=== PATIENT | female | born 1940 | race Caucasian/White ===

== ENCOUNTER 2024-01-01 10:25 | Inpatient (IN) | payer MEDICARE, MEDICAID ==
[2024-01-01] MEDS ORDERED: Bisacodyl 5 MG TAB PO PRN (15:59)
[2024-01-01] MEDS: Acetaminophen 325 MG TAB PO PRN (17:01)
[2024-01-01] MEDS: Pregabalin 50 MG CAP PO SCH (20:47)
[2024-01-01] MEDS: Atorvastatin Calcium 40 MG TAB PO SCH (20:47)
[2024-01-01] MEDS: Nystatin Powder 15 GM BOT TOP SCH (20:48)
[2024-01-02] MEDS: oxyCODONE 5 MG TAB PO PRN (00:41)
[2024-01-02 04:45] VITALS: BMI 32.9
[2024-01-02] MEDS: Levothyroxine Sodium 100 MCG TAB PO SCH (05:23)
[2024-01-02 06:03] LABS: #Eosinphils 0.5 thou/uL (0.0-0.7); #Lymphocytes 1.1 thou/uL (1.20-3.40); #Monocytes 0.6 thou/uL (0.11-0.59); #Neutrophils 2.9 thou/uL (1.40-6.50); %Basophils 0.9 % (0.0-1.0); %Eosinophils 10.3 % (0.0-10.0); %Lymphocytes 21.5 % (21.0-51.0); %Monocytes 11.1 % (0.0-10.0); %Neutrophils 56.1 % (42.0-75.0); Hematocrit 40.9 % (36.0-47.0); Hemoglobin 13.3 g/dL (12.0-16.0); Mean Corpuscular HGB CONC 32.5 g/dL (32.0-36.0); Mean Corpuscular Volume 95.6 fl (78.0-98.0); Mean Platelet Volume 7.9 fL (7.4-10.4); Platelet Count 262 10x3/uL (130-400); RBC Distribution Width 15.1 % (11.5-14.5); Red Blood Cell (RBC) Count 4.28 mill/uL (4.20-5.40); White Blood Cell (WBC) Count 5.1 10x3/uL (4.8-10.8)
[2024-01-02 06:17] LABS: ALT (SGPT) 18 U/L (8-55); AST (SGOT) 27 U/L (5-34); Albumin 2.7 g/dL (3.4-4.8); Alkaline Phosphatase 39 U/L (40-110); Anion Gap 13 mmol/L (10-20); BUN (Urea Nitrogen) 8 mg/dL (9.8-20.1); Bilirubin, Total 0.5 mg/dL (0.2-1.2); Calc. Creatinine Clearance 75 mL/min (70-130); Carbon Dioxide 24 mmol/L (23-31); Chloride 103 mmol/L (98-107); Estimated GFR 76; Globulin 3.5 g/dL (2.4-3.5); Glucose 108 mg/dL (83-110); Potassium 4.1 mmol/L (3.5-5.1); Protein, Total 6.2 g/dL (5.8-8.1); Sodium 136 mmol/L (136-145)
[2024-01-02] MEDS: Isosorbide Mononitrate 30 MG ER.TAB PO SCH (07:54)
[2024-01-02] MEDS: Pantoprazole DR 40 MG TAB PO SCH (07:54)
[2024-01-02] MEDS: Rivaroxaban 10 MG TAB PO SCH (16:54)
[2024-01-03] MEDS: Ondansetron ODT 4 MG TAB SL PRN (06:27)
[2024-01-03] MEDS: Methocarbamol 500 MG TAB PO PRN (08:57)
[2024-01-03] MEDS: oxyCODONE 5 MG TAB PO SCH (12:31)
[2024-01-03] MEDS: Acetaminophen 325 MG TAB PO SCH (12:32)
[2024-01-04] MEDS: Senokot S 8.6-50 MG TAB PO PRN (17:30)
[2024-01-04] MEDS: Moisturizing Cream (Eucerin) 113 GM JAR TOP SCH (20:35)
[2024-01-06 05:59] LABS: #Basophils 0.1 thou/uL (0.0-0.2); #Eosinphils 0.4 thou/uL (0.0-0.7); #Lymphocytes 0.9 thou/uL (1.20-3.40); #Monocytes 0.7 thou/uL (0.11-0.59); #Neutrophils 3.5 thou/uL (1.40-6.50); %Basophils 1.3 % (0.0-1.0); %Eosinophils 7.6 % (0.0-10.0); %Lymphocytes 15.9 % (21.0-51.0); %Monocytes 12.7 % (0.0-10.0); %Neutrophils 62.5 % (42.0-75.0); Hematocrit 36.3 % (36.0-47.0); Hemoglobin 11.9 g/dL (12.0-16.0); Mean Corpuscular HGB CONC 32.8 g/dL (32.0-36.0); Mean Corpuscular Hemoglobin 31.1 pg (27.0-31.0); Mean Corpuscular Volume 94.8 fl (78.0-98.0); Mean Platelet Volume 7.5 fL (7.4-10.4); Platelet Count 207 10x3/uL (130-400); RBC Distribution Width 14.6 % (11.5-14.5); Red Blood Cell (RBC) Count 3.82 mill/uL (4.20-5.40); White Blood Cell (WBC) Count 5.6 10x3/uL (4.8-10.8)
[2024-01-06 06:13] LABS: ALT (SGPT) 20 U/L (8-55); AST (SGOT) 28 U/L (5-34); Albumin 2.9 g/dL (3.4-4.8); Alkaline Phosphatase 39 U/L (40-110); Anion Gap 14 mmol/L (10-20); BUN (Urea Nitrogen) 10 mg/dL (9.8-20.1); Bilirubin, Total 0.6 mg/dL (0.2-1.2); Calc. Creatinine Clearance 77 mL/min (70-130); Calcium 8.9 mg/dL (7.8-10.44); Carbon Dioxide 24 mmol/L (23-31); Chloride 102 mmol/L (98-107); Estimated GFR 78; Globulin 3.3 g/dL (2.4-3.5); Glucose 105 mg/dL (83-110); Protein, Total 6.2 g/dL (5.8-8.1); Sodium 136 mmol/L (136-145)
[2024-01-06] MEDS: Pregabalin 75 MG CAP PO SCH (20:22)
[2024-01-10] MEDS: Melatonin 3 MG TAB PO SCH (21:01)
[2024-01-13 06:11] LABS: #Basophils 0.1 thou/uL (0.0-0.2); #Eosinphils 0.5 thou/uL (0.0-0.7); #Lymphocytes 1.5 thou/uL (1.20-3.40); #Monocytes 0.6 thou/uL (0.11-0.59); #Neutrophils 2.3 thou/uL (1.40-6.50); %Basophils 1.2 % (0.0-1.0); %Eosinophils 9.3 % (0.0-10.0); %Lymphocytes 30.1 % (21.0-51.0); %Neutrophils 47.4 % (42.0-75.0); Hematocrit 42.7 % (36.0-47.0); Hemoglobin 13.5 g/dL (12.0-16.0); Mean Corpuscular HGB CONC 31.6 g/dL (32.0-36.0); Mean Corpuscular Hemoglobin 30.4 pg (27.0-31.0); Mean Corpuscular Volume 96.4 fl (78.0-98.0); Mean Platelet Volume 7.4 fL (7.4-10.4); Platelet Count 250 10x3/uL (130-400); RBC Distribution Width 15.5 % (11.5-14.5); Red Blood Cell (RBC) Count 4.43 mill/uL (4.20-5.40); White Blood Cell (WBC) Count 4.9 10x3/uL (4.8-10.8)
[2024-01-13 06:21] LABS: Anion Gap 16 mmol/L (10-20); BUN (Urea Nitrogen) 10 mg/dL (9.8-20.1); Calc. Creatinine Clearance 72 mL/min (70-130); Calcium 9.6 mg/dL (7.8-10.44); Carbon Dioxide 23 mmol/L (23-31); Chloride 105 mmol/L (98-107); Estimated GFR 74; Glucose 114 mg/dL (83-110); Potassium 4.9 mmol/L (3.5-5.1); Sodium 139 mmol/L (136-145)
[2024-01-14 06:30] VITALS: BMI 32.1
[2024-01-14] MEDS: Polyethylene Glycol 3350 17 GM Packet PO SCH (15:01)
[2024-01-15] MEDS ORDERED: Polyethylene Glycol 3350 17 GM Packet PO PRN (07:44)
[2024-01-15] MEDS ORDERED: Polyethylene Glycol 3350 17 GM Packet PO SCH (09:00)
[2024-01-16] MEDS: guaiFENesin ER 600 MG TAB PO SCH (09:16)
[2024-01-16 10:13] LABS: Anion Gap 14 mmol/L (10-20); BUN (Urea Nitrogen) 9 mg/dL (9.8-20.1); Calc. Creatinine Clearance 74 mL/min (70-130); Calcium 8.9 mg/dL (7.8-10.44); Carbon Dioxide 23 mmol/L (23-31); Chloride 102 mmol/L (98-107); Estimated GFR 77; Glucose 105 mg/dL (83-110); Sodium 135 mmol/L (136-145)
[2024-01-16 10:16] LABS: #Basophils 0.1 thou/uL (0.0-0.2); #Eosinphils 0.4 thou/uL (0.0-0.7); #Lymphocytes 1.1 thou/uL (1.20-3.40); #Monocytes 0.6 thou/uL (0.11-0.59); #Neutrophils 3.2 thou/uL (1.40-6.50); %Basophils 1.2 % (0.0-1.0); %Eosinophils 7.1 % (0.0-10.0); %Lymphocytes 20.2 % (21.0-51.0); %Monocytes 11.8 % (0.0-10.0); %Neutrophils 59.7 % (42.0-75.0); Hematocrit 39.4 % (36.0-47.0); Hemoglobin 12.3 g/dL (12.0-16.0); Mean Corpuscular HGB CONC 31.2 g/dL (32.0-36.0); Mean Corpuscular Hemoglobin 30.1 pg (27.0-31.0); Mean Corpuscular Volume 96.7 fl (78.0-98.0); Mean Platelet Volume 8.4 fL (7.4-10.4); Platelet Count 256 10x3/uL (130-400); RBC Distribution Width 14.8 % (11.5-14.5); Red Blood Cell (RBC) Count 4.08 mill/uL (4.20-5.40); White Blood Cell (WBC) Count 5.3 10x3/uL (4.8-10.8)
[2024-01-16 20:34] VITALS: TEMP 98.1
[2024-01-17 10:38] VITALS: BP 98/53
== END 2024-01-17 12:45 | disposition home health service (06) | DRG 948 ==
LOC: NAV ACUTE 15:00
PROVIDERS: ADMIT Family Medicine; ATTEND Family Medicine
DX: R53.81 Other malaise (principal); L97.919 Non-pressure chronic ulcer of unspecified part of right lower leg with unspecified severity; I50.32 Chronic diastolic (congestive) heart failure; L03.115 Cellulitis of right lower limb; L03.116 Cellulitis of left lower limb; L97.929 Non-pressure chronic ulcer of unspecified part of left lower leg with unspecified severity; I25.10 Atherosclerotic heart disease of native coronary artery without angina pectoris; E03.9 Hypothyroidism, unspecified; E78.00 Pure hypercholesterolemia, unspecified; M06.9 Rheumatoid arthritis, unspecified; S31.000A Unspecified open wound of lower back and pelvis without penetration into retroperitoneum, initial encounter; I11.0 Hypertensive heart disease with heart failure; Z98.890 Other specified postprocedural states; Z90.89 Acquired absence of other organs; Z90.49 Acquired absence of other specified parts of digestive tract; Z95.818 Presence of other cardiac implants and grafts; Z90.710 Acquired absence of both cervix and uterus
CPT/HCPCS: 36415; 71045; 80048; 80053; 85025; 97602; Q0162

== ENCOUNTER 2024-11-26 08:43 | Inpatient (IN) | payer MEDICARE, MEDICAID ==
[2024-11-26] MEDS ORDERED: Acetaminophen 325 MG TAB PO PRN ×2 (09:02→13:32)
[2024-11-26] MEDS ORDERED: Mag-Al Plus 1200/1200/120 MG (30 mL) UDCUP PO PRN (09:11)
[2024-11-26] MEDS: oxyCODONE 5 MG TAB PO PRN (17:21)
[2024-11-26 18:33] LABS: Glucose, Urine (Dipstick) Negative (Negative); Leukocyte Negative (Negative); Protein, Urine (Dipstick) 30 mg/dL (Neg-Trace); Specific Gravity, Urine 1.015 (1.005-1.030)
[2024-11-26] MEDS: oxyCODONE 5 MG TAB PO SCH (18:36)
[2024-11-26] MEDS: Acetaminophen 500 MG TAB PO SCH (18:38)
[2024-11-26 18:43] LABS: Bacteria/HPF 1+ HPF (None Seen); CAUTI Indications for Culture Alt mental st,lethar; Oval Fat Bodies/HPF 1+ HPF (None Seen); RBC/HPF 0-3 HPF (0-3); WBC/HPF 0-3 HPF (0-3)
[2024-11-26 18:44] LABS: Urine Culture Reflex No No
[2024-11-26] MEDS: Melatonin 3 MG TAB PO SCH (20:49)
[2024-11-26] MEDS: Gabapentin 100 MG CAP PO SCH (20:50)
[2024-11-26] MEDS ORDERED: Gabapentin 100 MG CAP PO SCH (21:00)
[2024-11-27 05:53] LABS: #Basophils 0.1 thou/uL (0.0-0.2); #Eosinophils 0.3 thou/uL (0.0-0.7); #Lymphocytes 1.1 thou/uL (1.20-3.40); #Monocytes 0.8 thou/uL (0.11-0.59); #Neutrophils 8.6 thou/uL (1.40-6.50); %Basophils 0.6 % (0.0-1.0); %Eosinophils 2.7 % (0.0-10.0); %Lymphocytes 9.8 % (21.0-51.0); %Monocytes 7.0 % (0.0-10.0); %Neutrophils 79.9 % (42.0-75.0); Hematocrit 32.3 % (36.0-47.0); Hemoglobin 10.7 g/dL (12.0-16.0); Mean Corpuscular Hemoglobin 29.6 pg (27.0-31.0); Mean Corpuscular Volume 89.4 fl (78.0-98.0); Platelet Count 430 10x3/uL (130-400); Red Blood Cell (RBC) Count 3.61 mill/uL (4.20-5.40); White Blood Cell (WBC) Count 10.8 10x3/uL (4.8-10.8)
[2024-11-27 06:07] LABS: ALT (SGPT) Less than 4 U/L (Less than 34); AST (SGOT) 18 U/L (11-34); Albumin 1.6 g/dL (3.1-4.5); Alkaline Phosphatase 57 U/L (40-110); Anion Gap 12 mmol/L (10-20); BUN (Urea Nitrogen) 7 mg/dL (9.8-20.1); Bilirubin, Total 0.6 mg/dL (0.3-1.2); Calc. Creatinine Clearance 87 mL/min (70-130); Calcium 7.6 mg/dL (7.8-10.44); Carbon Dioxide 23 mmol/L (23-31); Chloride 100 mmol/L (98-107); Globulin 3.7 g/dL (2.4-3.5); Glucose 100 mg/dL (83-110); Magnesium 2.2 mg/dL (1.6-2.6); Potassium 4.1 mmol/L (3.5-5.1); Sodium 131 mmol/L (136-145)
[2024-11-27] MEDS: Acetaminophen 500 MG TAB PO SCH (06:48)
[2024-11-27] MEDS: Methocarbamol 500 MG TAB PO SCH (08:05)
[2024-11-27] MEDS: Enoxaparin 40 MG (0.4 mL) SYRINGE SC SCH (08:05)
[2024-11-27] MEDS: Famotidine 20 MG TAB PO SCH (08:06)
[2024-11-28] MEDS: Multivitamin W/ Minerals 1 TAB PO SCH (08:57)
[2024-11-28] MEDS: Transdermal Patch Removal TOP SCH (20:35)
[2024-11-29 05:50] LABS: Anion Gap 12 mmol/L (10-20); BUN (Urea Nitrogen) 6 mg/dL (9.8-20.1); Calc. Creatinine Clearance 84 mL/min (70-130); Calcium 8.3 mg/dL (7.8-10.44); Carbon Dioxide 24 mmol/L (23-31); Chloride 101 mmol/L (98-107); Glucose 109 mg/dL (83-110); Potassium 4.3 mmol/L (3.5-5.1); Sodium 133 mmol/L (136-145)
[2024-11-30] MEDS: Pantoprazole 40 MG DR.TAB PO SCH (08:36)
[2024-12-01 05:58] LABS: ALT (SGPT) Less than 4 U/L (Less than 34); AST (SGOT) 22 U/L (11-34); Albumin 1.7 g/dL (3.1-4.5); Alkaline Phosphatase 56 U/L (40-110); Anion Gap 13 mmol/L (10-20); BUN (Urea Nitrogen) 6 mg/dL (9.8-20.1); Bilirubin, Total 0.4 mg/dL (0.3-1.2); Calc. Creatinine Clearance 96 mL/min (70-130); Calcium 8.0 mg/dL (7.8-10.44); Carbon Dioxide 24 mmol/L (23-31); Chloride 103 mmol/L (98-107); Globulin 3.8 g/dL (2.4-3.5); Glucose 96 mg/dL (83-110); Magnesium 1.8 mg/dL (1.6-2.6); Potassium 3.9 mmol/L (3.5-5.1); Sodium 136 mmol/L (136-145)
[2024-12-04] MEDS: Diclofenac 1% 100 GM Topical GEL TP SCH (11:37)
[2024-12-06] MEDS: Gabapentin 300 MG CAP PO SCH (08:55)
[2024-12-06] MEDS: Gabapentin 100 MG CAP PO SCH (08:59)
[2024-12-07 07:43] LABS: #Basophils 0.1 thou/uL (0.0-0.2); #Eosinophils 0.4 thou/uL (0.0-0.7); #Lymphocytes 1.1 thou/uL (1.20-3.40); #Monocytes 0.7 thou/uL (0.11-0.59); #Neutrophils 4.9 thou/uL (1.40-6.50); %Basophils 1.6 % (0.0-1.0); %Eosinophils 5.6 % (0.0-10.0); %Lymphocytes 14.8 % (21.0-51.0); %Monocytes 9.8 % (0.0-10.0); %Neutrophils 68.2 % (42.0-75.0); Hematocrit 34.0 % (36.0-47.0); Hemoglobin 10.9 g/dL (12.0-16.0); Mean Corpuscular Hemoglobin 28.4 pg (27.0-31.0); Mean Corpuscular Volume 88.6 fl (78.0-98.0); Platelet Count 546 10x3/uL (130-400); Red Blood Cell (RBC) Count 3.84 mill/uL (4.20-5.40); White Blood Cell (WBC) Count 7.1 10x3/uL (4.8-10.8)
[2024-12-07 07:53] LABS: Anion Gap 16 mmol/L (10-20); BUN (Urea Nitrogen) 5 mg/dL (9.8-20.1); Calc. Creatinine Clearance 90 mL/min (70-130); Calcium 8.5 mg/dL (7.8-10.44); Carbon Dioxide 20 mmol/L (23-31); Chloride 103 mmol/L (98-107); Glucose 100 mg/dL (83-110); Potassium 4.1 mmol/L (3.5-5.1); Sodium 135 mmol/L (136-145)
[2024-12-07] MEDS: Senokot S 8.6-50 MG TAB PO PRN (21:05)
[2024-12-08 12:31] LABS: Iron 22 ug/dL (50-170); Iron Binding Capacity, Total 128 mcg/dL (265-497)
[2024-12-08] MEDS: Nystatin 500,000 UNITS/5 ML UDCUP SSW SCH (13:00)
[2024-12-08] MEDS: Ferrous Sulfate 325 MG TAB PO SCH (17:24)
[2024-12-14 05:38] LABS: #Basophils 0.1 thou/uL (0.0-0.2); #Eosinophils 0.3 thou/uL (0.0-0.7); #Lymphocytes 1.2 thou/uL (1.20-3.40); #Monocytes 0.7 thou/uL (0.11-0.59); #Neutrophils 3.1 thou/uL (1.40-6.50); %Basophils 1.2 % (0.0-1.0); %Eosinophils 6.3 % (0.0-10.0); %Lymphocytes 22.5 % (21.0-51.0); %Monocytes 13.4 % (0.0-10.0); %Neutrophils 56.6 % (42.0-75.0); Hematocrit 30.7 % (36.0-47.0); Hemoglobin 9.9 g/dL (12.0-16.0); Mean Corpuscular Hemoglobin 28.1 pg (27.0-31.0); Mean Corpuscular Volume 87.1 fl (78.0-98.0); Platelet Count 391 10x3/uL (130-400); Red Blood Cell (RBC) Count 3.53 mill/uL (4.20-5.40); White Blood Cell (WBC) Count 5.5 10x3/uL (4.8-10.8)
[2024-12-14 05:53] LABS: ALT (SGPT) Less than 4 U/L (Less than 34); AST (SGOT) 16 U/L (11-34); Albumin 1.8 g/dL (3.1-4.5); Alkaline Phosphatase 56 U/L (40-110); Anion Gap 12 mmol/L (10-20); BUN (Urea Nitrogen) 5 mg/dL (9.8-20.1); Bilirubin, Total 0.3 mg/dL (0.3-1.2); Calc. Creatinine Clearance 80 mL/min (70-130); Calcium 8.1 mg/dL (7.8-10.44); Carbon Dioxide 24 mmol/L (23-31); Chloride 106 mmol/L (98-107); Globulin 4.3 g/dL (2.4-3.5); Glucose 100 mg/dL (83-110); Potassium 4.0 mmol/L (3.5-5.1); Sodium 138 mmol/L (136-145)
[2024-12-14] MEDS: Nystatin Powder 15 GM BOT TOP PRN (12:37)
[2024-12-15] MEDS: Fluconazole 100 MG TAB PO SCH (13:18)
[2024-12-16] MEDS: Fluconazole 100 MG TAB PO SCH (09:00)
[2024-12-20 05:29] LABS: #Basophils 0.1 thou/uL (0.0-0.2); #Eosinophils 0.3 thou/uL (0.0-0.7); #Lymphocytes 1.4 thou/uL (1.20-3.40); #Monocytes 0.8 thou/uL (0.11-0.59); #Neutrophils 2.5 thou/uL (1.40-6.50); %Basophils 1.3 % (0.0-1.0); %Eosinophils 5.8 % (0.0-10.0); %Lymphocytes 28.3 % (21.0-51.0); %Monocytes 15.3 % (0.0-10.0); %Neutrophils 49.4 % (42.0-75.0); Hematocrit 27.8 % (36.0-47.0); Hemoglobin 9.3 g/dL (12.0-16.0); Mean Corpuscular Hemoglobin 29.2 pg (27.0-31.0); Mean Corpuscular Volume 87.2 fl (78.0-98.0); Platelet Count 345 10x3/uL (130-400); Red Blood Cell (RBC) Count 3.19 mill/uL (4.20-5.40); White Blood Cell (WBC) Count 5.1 10x3/uL (4.8-10.8)
[2024-12-20 05:42] LABS: Anion Gap 13 mmol/L (10-20); BUN (Urea Nitrogen) 6 mg/dL (9.8-20.1); Calc. Creatinine Clearance 73 mL/min (70-130); Calcium 8.4 mg/dL (7.8-10.44); Carbon Dioxide 24 mmol/L (23-31); Chloride 104 mmol/L (98-107); Glucose 96 mg/dL (83-110); Potassium 3.8 mmol/L (3.5-5.1); Sodium 137 mmol/L (136-145)
[2024-12-22 08:29] VITALS: BMI 28.9
[2024-12-22] MEDS: oxyCODONE 5 MG TAB PO SCH (12:44)
[2024-12-24 19:34] VITALS: TEMP 97.8
[2024-12-25 03:45] VITALS: BMI 28.7
[2024-12-25 08:01] VITALS: BP 113/73
== END 2024-12-25 11:29 | disposition home or self-care (01) | DRG 945 ==
LOC: NAV ACUTE 12:32
PROVIDERS: ADMIT Student in an Organized Health Care Education/Training Program; ATTEND Student in an Organized Health Care Education/Training Program
PROC: F07Z9ZZ Gait Training/Functional Ambulation Treatment (ICD-10-PCS; principal; 2024-11-26)
DX: R53.1 Weakness (principal); I50.31 Acute diastolic (congestive) heart failure; E87.1 Hypo-osmolality and hyponatremia; M06.9 Rheumatoid arthritis, unspecified; D50.9 Iron deficiency anemia, unspecified; I25.10 Atherosclerotic heart disease of native coronary artery without angina pectoris; E03.9 Hypothyroidism, unspecified; E83.51 Hypocalcemia; R33.9 Retention of urine, unspecified; I11.0 Hypertensive heart disease with heart failure; E88.09 Other disorders of plasma-protein metabolism, not elsewhere classified; Z86.718 Personal history of other venous thrombosis and embolism; Z90.49 Acquired absence of other specified parts of digestive tract; Z98.890 Other specified postprocedural states; Z95.5 Presence of coronary angioplasty implant and graft; Z90.710 Acquired absence of both cervix and uterus; Z88.5 Allergy status to narcotic agent; Z79.899 Other long term (current) drug therapy
CPT/HCPCS: 36415; 71045; 80048; 80053; 81001; 82728; 83540; 83550; 83735; 84100; 85025; 97602; J1650